=== PATIENT | male | born 1950 | race Caucasian/White ===

== ENCOUNTER 2021-03-02 10:47 | Outpatient (CLI) | payer MEDICARE, SELFPAY ==
[2021-03-02 11:23] LABS: Anion Gap 8 mmol/L (8-16); Blood Urea Nitrogen 16 mg/dL (9-20); Calcium 9.6 mg/dL (8.4-10.2); Carbon Dioxide 28 mmol/L (22-30); Chloride 101 mmol/L (98-107); Estimated Glomerular Filt Rate > 60; Glucose 117 mg/dL (75-110); Potassium 4.3 mmol/L (3.4-5.0); Sodium 137 mmol/L (137-145)
--- NOTE | 2021-03-02 13:30 | ECG_ITS ---
Measurements Intervals [place] Rate: 65 P: 27 MD: 175 QRS: 5 QRSD: 88 T: 30 QT: 401 QTc: 418 Interpretive Statements SINUS RHYTHM BORDERLINE R WAVE PROGRESSION, ANTERIOR LEADS BASELINE ARTIFACT- II, III BORDERLINE ECG Electronically Signed On 03-02-2021 12:17:16 CDT by Rosas Guzman D.O.
== END 2021-03-02 10:48 | disposition home or self-care (01) ==
LOC: ANHSURGERY 10:54
PROVIDERS: Anesthesiology; PCP Family Medicine Adolescent Medicine; Visit Provider Urology
DX: N32.9 Bladder disorder, unspecified (principal); E11.9 Type 2 diabetes mellitus without complications; Z01.818 Encounter for other preprocedural examination; R94.31 Abnormal electrocardiogram [ECG] [EKG]
CPT/HCPCS: 36415; 80048; 87086; 93005

== ENCOUNTER → 2021-03-03 04:11 | Outpatient (CLI) | payer MEDICARE, SELFPAY ==
[2021-03-03 19:45] LABS: SARS-CoV-2 RNA PCR Negative
== END ==
PROVIDERS: PCP Family Medicine Adolescent Medicine; Visit Provider Urology
DX: Z01.812 Encounter for preprocedural laboratory examination (principal); Z20.822 Contact with and (suspected) exposure to COVID-19
CPT/HCPCS: C9803; U0003; U0005

== ENCOUNTER 2021-03-06 02:00 | Day surgery (SDC) | payer MEDICARE, SELFPAY ==
[2021-02-28 13:25] VITALS: BMI 25.8
[2021-03-06] VITALS (7 sets, daily range): BP systolic 102–125; BP diastolic 68–80; PULSE 55–69; RESP 13–18; TEMP 36.3–36.5; O2SAT 96–100; BMI 25.2
--- NOTE | 2021-03-06 12:41 | WPDHPUPDATE1 ---
History and Physical Update Update Date/Time: 03/06/21 12:41 History and Physical has been reviewed, including an updated exam of the patient. There are NO changes in the patient's condition. Risks, benefits, and alternatives have been discussed and questions answered. Patient agrees to proceed with procedure.
[2021-03-06] MEDS: LACTATED RINGERS 1,000 ML 30 ML IV CONT (13:24)
[2021-03-06 13:32] LABS: Glucose Point of Care 85 mg/dl (65-105)
--- NOTE | 2021-03-06 13:33 | P.PNAN_ITS ---
Anes - Initial Pre Proc Eval Procedure: Operation Date: 03/06/21 15:15 Proposed Procedures p Cystoscopy, Bladder Biopsy with Fulguration - Krishna Ashford MD Date/Time: 03/06/21 13:33 Surgeon: Krishna Ashford MD Pre Op Diagnosis: bladder lesion, frequency of urination,urgency Patient Data Age: 70 Gender: M Height: 6 ft Weight: 84.5 kg Last Vital Signs Temp 36.5 C 03/06/21 13:10 Pulse 69 03/06/21 13:10 Resp 18 03/06/21 13:10 BP 125/78 03/06/21 13:10 Pulse Ox 100 03/06/21 13:10 Allergies Allergy/AdvReac Type Severity Reaction Status Date / Time latex Allergy Intermediate Rash Verified 03/06/21 13:24 Penicillins Allergy Mild Rash Verified 03/06/21 13:24 Home Medications Medication Instructions Recorded Confirmed Type glimepiride 2 mg PO HS 09/22/19 03/06/21 History metformin 2,000 mg PO HS 09/22/19 03/06/21 History ezetimibe 10 mg HS 02/28/21 03/06/21 History finasteride 5 mg HS 02/28/21 03/06/21 History tamsulosin [Flomax] 0.4 mg PO HS 02/28/21 03/06/21 History Laboratory Tests 03/06/21 13:29 POC Capillary Glucose 85 mg/dl mg/dl (65-105) Patient hx anesthesia problems: none Family hx anesthesia problems: none [facility] Past Medical History Medical History Diabetes type 2, controlled Social History Social History Social History: 1-2 drinks most days, Smoking packs per day: 2 Smoking cigarettes per day: 40.0 Years smoked: 10 Smoking pack-years: 20.00 Smoking status: Former smoker Tobacco type: cigarettes Additional smoking assessment comments: QUIT 1970 Alcohol intake: current Drinks per week: 7 Substance use: never Substance use type: does not use Living arrangements: with family Gender identity (if verbalized by the patient): Male Spiritual care concerns: No Anes - Eval Final PreProcedure Day of Procedure 03/06/21 13:33 Patient weight: normal Heart: regular rate and rhythm Lungs: clear to auscultation Airway: Mallampati scale class II Neurological: alert and oriented Last oral intake: >/= 8 hours ASA classification: III Emergent: no Anesthetic plan: proceed Anesthesia type and monitoring: general LMA and standard monitoring Informed Consent: The patient's anesthetic plan and its attendant risks and benefits were discussed with the patient/family/POA. Questions were solicited and answers provided to the satisfaction of the patient/family/POA.
--- NOTE | 2021-03-06 13:48 | WPDHPUPDATE1 ---
History and Physical Update Update Date/Time: 03/06/21 13:48 History and Physical has been reviewed, including an updated exam of the patient. There are NO changes in the patient's condition. Risks, benefits, and alternatives have been discussed and questions answered. Patient agrees to proceed with procedure.
[2021-03-06] MEDS: levoFLOXacin 500 MG/D5W 100 ML 500 MG/100 ML BAG 100 MG IVPB (14:06)
[2021-03-06] MEDS: LIDOCAINE HCL 2% GEL UROJET 10 ML PKG MUCOUS MEM (14:18)
--- NOTE | 2021-03-06 14:31 | P.OP_ITS ---
Procedure Note - Detailed Date of procedure: 03/06/21 Pre-op diagnosis: bladder lesion, frequency of urination,urgency Post-op diagnosis: same Procedure performed: Cysto with bladder biopsy and fulguration Description of procedure: Patient is taken the operative suite and correctly identified. Once anesthesia was obtained he was placed in dorsal lithotomy position prepped and draped usual sterile fashion. Twenty-two [place] scope inserted in the bladder direct vision. There is no urethral strictures noted at this time. Bladder is inspected in its entirety. There is some diffuse erythema and also lased very small 1-2 mm lesion just lateral to the left ureteral orifice. This has the appearance of a lesion of low malignant potential. We went ahead and used the cold cup biopsy to retrieve this sent for analysis. We then biopsied 1 of the erythematous areas. We fulgurated the base. 2% viscous lidocaine was inserted urethra patient is taken recovery stable condition. He will call for results in a week's Anesthesia: GLMA Surgeon: Krishna Ashford MD Drains: No Packing: No Pathology: yes Complications: No immediate complications Condition: stable Disposition: PACU
[2021-03-07 07:23] LABS: Glucose Point of Care 92 mg/dl (65-105)
== END 2021-03-06 15:57 | disposition home or self-care (01) ==
PROVIDERS: PCP Family Medicine Adolescent Medicine; Visit Provider Urology
PROC: 0TBB8ZX Excision of Bladder, Via Natural or Artificial Opening Endoscopic, Diagnostic (ICD-10-PCS; CPT 52204; principal; 2021-03-06 15:15)
DX: C67.0 Malignant neoplasm of trigone of bladder (principal); C67.4 Malignant neoplasm of posterior wall of bladder; N30.80 Other cystitis without hematuria; E11.9 Type 2 diabetes mellitus without complications; Z79.84 Long term (current) use of oral hypoglycemic drugs; Z87.891 Personal history of nicotine dependence
CPT/HCPCS: 52204; 36415; 80048; 82948; 87086; 88305; 93005; A9270; C9803; J1100; J1956; J2405; J2704; J3010; J7120; U0003; U0005

== ENCOUNTER 2025-05-25 12:29 | Emergency (ER) | payer MEDICARE, SELFPAY ==
--- NOTE | ~2025-05-25 | XR_ITS ---
EXAMINATION: XR forearm RT 2V DATE: 05/25/2025 14:41 INDICATION: Laceration to the right forearm TECHNIQUE: AP an lateral views of the right forearm were obtained. COMPARISON: none FINDINGS: Dense material about the dorsal/the distal right forearm. Old healed fracture deformity at the right fifth metacarpal. Bone alignment is otherwise normal. No acute fracture. 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 No right elbow joint effusion. No radiopaque foreign bodies. IMPRESSION: 1. No acute osseous abnormality or radiopaque foreign body. Reviewed, dictated and finalized at location A.
[2025-05-25 12:32] VITALS: BP 115/70; PULSE 98; RESP 16; TEMP 36.6; O2SAT 99
--- NOTE | 2025-05-25 14:00 | ED_ITS ---
HPI - Wound/Laceration General Chief Complaint: Wound/Laceration <Rakel Chavez PA-C - Last Filed: 05/27/25 09:18> Stated Complaint: Laceration right arm-actively bleeding <Rakel Chavez PA-C - Last Filed: 05/27/25 09:18> Time Seen by Provider: 05/25/25 14:00 <Rakel Chavez PA-C - Last Filed: 05/27/25 09:18> Focused HPI: This is a 75 year old male that presents to the ER for laceration to the right forearm. Sustained just prior to arrival. Not up to date on tetanus vaccination. GENERAL: Well-appearing, well-nourished, and in no acute distress. HEAD: Normocephalic, atraumatic. CHEST: No respiratory distress. HEART: Regular rate NEURO: ?Alert and oriented x3. SKIN: Right forearm with 3cm linear laceration into subcutaneous tissue Patient screened in triage and initial orders placed.? ?Additional care and disposition to be based upon?diagnostic testing and treatment. <Rakel Chavez PA-C - Last Filed: 05/27/25 09:18> Source: patient <Marcelo Trevino MD - Last Filed: 05/25/25 16:13> Mode of arrival: ambulatory <Marcelo Trevino MD - Last Filed: 05/25/25 16:13> Limitations: no limitations <Marcelo Trevino MD - Last Filed: 05/25/25 16:13> History of Present Illness HPI narrative: 75-year-old with a history of diabetes here with a complains of laceration to his right forearm sustained prior to coming to the ER. Patient states he accidentally cut himself with a metal piece . <Marcelo Trevino MD - Last Filed: 05/25/25 16:13> Onset (ago): hour(s) (1) <Marcelo Trevino MD - Last Filed: 05/25/25 16:13> Extremity Location: Right: forearm <MD Rosa Orozco Last Filed: 05/25/25 16:13> Place: work <MD Rosa Orozco Last Filed: 05/25/25 16:13> Context: accidental <Marcelo Trevino MD - Last Filed: 05/25/25 16:13> Related Data Allergies/Adverse Reactions: Allergies Allergy/AdvReac Type Severity Reaction Status Date / Time latex Allergy Intermediate Rash Verified 08/23/24 13:44 Penicillins Allergy Mild Rash Verified 08/23/24 13:44 pravastatin (From Pravachol) AdvReac Unknown memory loss Verified 08/23/24 13:44 rosuvastatin (From Crestor) AdvReac Unknown cramps Verified 08/23/24 13:44 sitagliptin (From Januvia) AdvReac Unknown Diarrhea Verified 08/23/24 13:44 <Rakel Chavez PA-C - Last Filed: 05/27/25 09:18> Review of Systems Review of Systems: All systems reviewed & are unremarkable except as noted in HPI and below <Marcelo Trevino MD - Last Filed: 05/25/25 16:13> Constitutional: Constitutional: Reports no additional constitutional complaints <Marcelo Trevino MD - Last Filed: 05/25/25 16:13> Eyes: Eyes: Reports no additional eye complaints <Marcelo Trevino MD - Last Filed: 05/25/25 16:13> ENT: Reports system reviewed and no additional complaints, except as documented <Marcelo Trevino MD - Last Filed: 05/25/25 16:13> Cardiovascular: Cardiovascular: Reports no additional cardiovascular complaints <Marcelo Trevino MD - Last Filed: 05/25/25 16:13> Respiratory: Respiratory: Reports no additional respiratory complaints <Marcelo Trevino MD - Last Filed: 05/25/25 16:13> Gastrointestinal: Gastrointestinal: Reports no additional gastrointestinal complaints <Marcelo Trevino MD - Last Filed: 05/25/25 16:13> Musculoskeletal: Musculoskeletal: Reports as per HPI <Marcelo Trevino MD - Last Filed: 05/25/25 16:13> Integumentary/Breasts: Skin/Breast: Reports as per HPI <Marcelo Trevino MD - Last Filed: 05/25/25 16:13> Neurologic: Reports system reviewed and no additional complaints, except as documented <Marcelo Trevino MD - Last Filed: 05/25/25 16:13> PMFSH Past Medical History Medical History: Medical History Diabetes type 2, controlled <Rakel Chavez PA-C - Last Filed: 05/27/25 09:18> Surgical History Surgical History: Surgical History H/O shoulder surgery <Rakel Chavez PA-C - Last Filed: 05/27/25 09:18> Family History Family History: Family History Mother Diabetes mellitus Father Malignant neoplasm of prostate <Rakel Chavez PA-C - Last Filed: 05/27/25 09:18> Social History Social History: Social History Social History: 1-2 drinks most days, Smoking packs per day: 2 Smoking cigarettes per day: 40.0 Years smoked: 10 Smoking pack-years: 20.00 Smoking status: Former smoker Tobacco type: cigarettes Additional smoking assessment comments: QUIT 1970 Alcohol intake: current Drinks per week: 7 Substance use: never Substance use type: does not use Lack of Transportation: No Lack of Food: Never True Current Housing: I Have Housing Concerned About Future Housing: No Difficulty Paying Gas/Electric Bills: No Difficulty Paying for Meds: No Currently Unemployed: No Education: Don't Know Difficulty w/ Childcare or Family Care: No Living arrangements: with family Gender identity (if verbalized by the patient): Male Spiritual care concerns: No <Rakel Chavez PA-C - Last Filed: 05/27/25 09:18> Exam Narrative: GENERAL: Well-appearing, well-nourished, and in no acute distress. HEAD: Normocephalic, atraumatic. EYES: PERRLA and EOMI. ENT: Nares clear, no rhinorrhea or epistaxis. Mucous membranes moist. NECK: Supple. CHEST: Clear to auscultation. No respiratory distress. HEART: Regular rate and rhythm. No murmur heard. Normal peripheral pulses. EXTREMITIES: Normal range of motion. No edema. 2 cm laceration on the right f orearm with no active bleeding SKIN: Warm, dry, no rash. NEURO: No focal deficits. Alert and oriented x3. PSYCH: Normal mood and affect. <Marcelo Trevino MD - Last Filed: 05/25/25 16:13> Course Course Emergency Course: Informed to minimize x-ray finding. <Marcelo Trevino MD - Last Filed: 05/25/25 16:13> Vital Signs Vital signs: Vital Signs Temperature 97.9 F 05/25/25 12:32 Pulse Rate 98 05/25/25 12:32 Respiratory Rate 16 05/25/25 12:32 Blood Pressure 115/70 05/25/25 12:32 Pulse Oximetry 99 05/25/25 12:32 Oxygen Delivery Room Air 05/25/25 12:32 Temperature 97.9 F 05/25/25 12:32 Pulse Rate 98 05/25/25 12:32 Respiratory Rate 16 05/25/25 12:32 Blood Pressure 115/70 05/25/25 12:32 Pulse Oximetry 99 05/25/25 12:32 Oxygen Delivery Room Air 05/25/25 12:32 <Rakel Chavez PA-C - Last Filed: 05/27/25 09:18> Vital Signs Temperature 97.9 F 05/25/25 12:32 Pulse Rate 98 05/25/25 12:32 Respiratory Rate 16 05/25/25 12:32 Blood Pressure 115/70 05/25/25 12:32 Pulse Oximetry 99 05/25/25 12:32 Oxygen Delivery Room Air 05/25/25 12:32 Temperature 97.9 F 05/25/25 12:32 Pulse Rate 98 05/25/25 12:32 Respiratory Rate 16 05/25/25 12:32 Blood Pressure 115/70 05/25/25 12:32 Pulse Oximetry 99 05/25/25 12:32 Oxygen Delivery Room Air 05/25/25 12:32 <Marcelo Trevino MD - Last Filed: 05/25/25 16:13> Procedures Laceration Laceration 1: Date: 05/25/25 <Marcelo Trevino MD - Last Filed: 05/25/25 16:13> Time: 16:03 <Marcelo Trevino MD - Last Filed: 05/25/25 16:13> Site: upper extremity (Right forearm) <Marcelo Trevino MD - Last Filed: 05/25/25 16:13> Size (cm): 2 <Marcelo Trevino MD - Last Filed: 05/25/25 16:13> Description: linear <Marcelo Trevino MD - Last Filed: 05/25/25 16:13> Depth: simple, single layer <Marcelo Trevino MD - Last Filed: 05/25/25 16:13> Local Anesthetic: lidocaine 1% and with epi <Marcelo Trevino MD - Last Filed: 05/25/25 16:13> Amount of anesthesia used (mL): 4 <Marcelo Trevino MD - Last Filed: 05/25/25 16:13> ====== Skin Level ======: Skin layer closed with: nylon <MD Rosa Orozco Last Filed: 05/25/25 16:13> Size (cm): 4-0 <MD Rosa Orozco Last Filed: 05/25/25 16:13> Number of sutures: 8 <MD Rosa Orozco Last Filed: 05/25/25 16:13> Technique: running <MD Rosa Orozco Last Filed: 05/25/25 16:13> ====== Subcutaneous Layer ======: ====== Muscle Layer ======: ====== Tendon Layer ======: MDM - Wound/Laceration Imaging Data Radiologist's impression: ITS Impressions Forearm X-Ray 05/25/25 15:04 IMPRESSION: 1. No acute osseous abnormality or radiopaque foreign body. <BLAINE Pisano Last Filed: 05/27/25 09:18> Discharge Plan Discharge Clinical Impression: Laceration of forearm, right Qualifiers: Encounter type: initial encounter Qualified Code(s): S51.811A - Laceration without foreign body of right forearm, initial encounter <BLAINE Pisano Last Filed: 05/27/25 09:18> Patient Disposition: Home <BLAINE Pisano Last Filed: 05/27/25 09:18> Condition: Stable <Rakel Chavez PA-C - Last Filed: 05/27/25 09:18> Instructions: Laceration (ED) <Rakel Chavez PA-C - Last Filed: 05/27/25 09:18> Patient Language: Yi <Rakel Chavez PA-C - Last Filed: 05/27/25 09:18> Prescriptions: New cephalexin 500 mg capsule 500 mg PO Q8H 7 Days Qty: 21 0RF cephalexin 500 mg capsule 500 mg PO Q8H 7 Days Qty: 21 0RF No Action pioglitazone 45 mg tablet 45 mg PO DAILY Qty: 90 1RF alcohol swabs [Alcohol Prep Pads] Pads, Medicated 1 pad topical DAILY Qty: 100 2RF Rx Instructions: use to clean off finger before testing blood sugar once daily (DME) blood-glucose meter [Accu-Chek Guide Me Glucose Mtr] Misc See Rx Instructions .Route Qty: 1 0RF Rx Instructions: Use to test glucose once daily ezetimibe 10 mg tablet See Rx Instructions .ROUTE .COMPLEX Qty: 100 1RF Dose Instruction: TAKE 1 TABLET BY MOUTH AT BEDTIME Rx Instructions: TAKE 1 TABLET BY MOUTH AT BEDTIME (DME) lancets [Accu-Chek Softclix Lancets] Misc See Rx Instructions .ROUTE .COMPLEX Qty: 100 2RF Dose Instruction: CHECK BLOOD SUGAR ONCE DAILY Rx Instructions: CHECK BLOOD SUGAR ONCE DAILY glimepiride 4 mg tablet See Rx Instructions .ROUTE .COMPLEX Qty: 100 2RF Dose Instruction: TAKE 1 TABLET BY MOUTH EVERY MORNING WITH BREAKFAST Rx Instructions: TAKE 1 TABLET BY MOUTH EVERY MORNING WITH BREAKFAST (DME) Accu-Chek Kaila Plus test strp Strip See Rx Instructions .Route Qty: 100 2RF Rx Instructions: use to check blood sugar once daily metformin 500 mg tablet extended release 24 hr See Rx Instructions .ROUTE .COMPLEX Qty: 400 0RF Dose Instruction: TAKE 4 TABLETS BY MOUTH DAILY Rx Instructions: TAKE 4 TABLETS BY MOUTH DAILY <Rakel Chavez PA-C - Last Filed: 05/27/25 09:18> Follow-up/Referrals: Octaviano Oakley MD [Primary Care Provider, Family Practice] <Rakel Chavez PA-C - Last Filed: 05/27/25 09:18> Time of Disposition: 15:59 <Rakel Chavez PA-C - Last Filed: 05/27/25 09:18> 15:59 <Marcelo Trevino MD - Last Filed: 05/25/25 16:13>
[2025-05-25] MEDS: TETANUS,DIPHTHERIA,AC PERTUSSIS ADULT (0.5 ML) BOOSTRIX IM (15:54)
== END 2025-05-25 19:45 | disposition home or self-care (01) ==
PROVIDERS: Emergency Provider Family Medicine; PCP Family Medicine Adolescent Medicine
DX: S51.811A Laceration without foreign body of right forearm, initial encounter (principal); W26.8XXA Contact with other sharp object(s), not elsewhere classified, initial encounter; E11.9 Type 2 diabetes mellitus without complications; Z87.891 Personal history of nicotine dependence; Z23 Encounter for immunization
CPT/HCPCS: 12001; 73090; 90471; 90715; 99283